=== PATIENT | male | born 1980 | race African-American/Black ===

== ENCOUNTER 2021-10-11 13:10 | Emergency (ER) | payer MEDICAID, SELFPAY ==
[2021-10-11] VITALS (11 sets, daily range): BP systolic 110–253; BP diastolic 85–174; PULSE 105–162; RESP 19–21; TEMP 37.6–39.2; O2SAT 88–100; BMI 25.1
--- NOTE | ~2021-10-11 | CT_ITS ---
EXAMINATION: CT CHEST WITH CONTRAST CT ABDOMEN AND PELVIS WITH CONTRAST CLINICAL INFORMATION: Unresponsive. Unknown trauma. COMPARISON: None. TECHNIQUE: Multidetector volumetric imaging was performed through the chest, abdomen and pelvis following the administration of 85 mL of Omnipaque 350 intravenous contrast. Sagittal and coronal reformatted images were obtained on the technologist's workstation. Axial MIP volume rendering provided. This CT examination was performed using dose optimization techniques as appropriate, variously including the following: *Automated exposure control *Adjustment of mA and/or kV according to patient size (this includes techniques or standardized protocols for targeted exams where dose is matched to indication/reason for exam; i.e. extremities or head) *Use of iterative reconstruction technique DLP: 411 mGy-cm. FINDINGS: CHEST: Lungs: The endotracheal tube terminates 4 cm above the caroline. Significant filling defects within the distal trachea extending into the left mainstem bronchus. Bilateral lower lobe bronchial filling defects also noted, suggestive of secretions. There is no dense consolidation. Minimal basilar atelectasis bilaterally. Mild upper lobe predominant paraseptal emphysema at both lung apices. No pleural effusion. No pneumothorax. Mediastinum: The heart is of normal size. There is no pericardial effusion. Central vascular structures are unremarkable. No hilar or mediastinal lymphadenopathy. Chest Wall/Axilla: No lymphadenopathy. No chest wall mass. ABDOMEN/PELVIS: Liver, Gallbladder, Biliary Tree: The liver is normal in size, shape, and attenuation. No focal hepatic lesion or biliary ductal dilatation is present. The gallbladder is unremarkable with no evidence of radiopaque gallstones, gallbladder wall thickening, or pericholecystic inflammatory changes. Pancreas: Unremarkable. Spleen: Unremarkable. Adrenal Glands: Unremarkable. Kidneys and Ureters: The kidneys are normal in size, shape, and attenuation. No hydronephrosis, hydroureter or calculi seen. Mild symmetric perinephric stranding. Symmetric contrast excretion. Bladder: Decompressed with Hidalgo catheter in place. Gastrointestinal Tract: Enteric tube terminates in the distal stomach. Normal caliber small bowel. No obstruction. No colonic wall thickening or inflammatory change. No free air or free fluid. The appendix is unremarkable. Abdominal Wall: No hernia is demonstrated. Lymphovascular Structures: Lymph nodes: Normal. Vascular: Unremarkable. Pelvic Viscera: The prostate and seminal vesicles are unremarkable. OSSEOUS STRUCTURES: No suspicious sclerotic or lytic bone lesions are identified. Mild degenerative changes of the spine. Vertebral body height and alignment maintained. No acute fracture. Intact sternum. The pelvis is intact. The ribs are intact. CT/CT abdomen pelvis w con IMPRESSION: No acute traumatic finding of the chest, abdomen, or pelvis. Endotracheal tube terminates 4 cm above the caroline. Secretions seen within the trachea and extending into both the left and right bronchi.
--- NOTE | ~2021-10-11 | CT_ITS ---
CT HEAD WITHOUT IV CONTRAST CT MAXILLOFACIAL WITH CONTRAST INDICATION: Unresponsive bilateral proptosis. Rule out fracture and/or bleed. COMPARISON: None available. TECHNIQUE: Multidetector CT acquisitions of the head was obtained without IV contrast. Additionally, a postcontrast CT of the maxillofacial region is obtained following the administration of 85 mL of Omnipaque 350 intravenous contrast without complication. This CT examination was performed using dose optimization techniques as appropriate, variously including the following: *Automated exposure control *Adjustment of mA and/or kV according to patient size (this includes techniques or standardized protocols for targeted exams where dose is matched to indication/reason for exam; i.e. extremities or head) *Use of iterative reconstruction technique FINDINGS: There is extensive edema throughout the cerebral white matter bilaterally resulting in global cerebral sulcal effacement and descending transtentorial herniation with effacement of the paramesencephalic and suprasellar cisterns. There is moderate to severe hydrocephalus. Intermediate to high density material within the dependent aspect of the ventricles may reflect intraventricular blood products or pus. No additional evidence of hemorrhage. No territorial infarcts. 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 There is post septal cellulitis partially effacing the left retrobulbar fat with associated left proptosis. 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 There is post septal cellulitis partially effacing the left retrobulbar fat with associated left proptosis. There is significantly decreased caliber of the intracranial left internal carotid artery, concerning for a component of vasculitis reactive narrowing in the setting of infection. There may also be irregularity of additional vessels within the anterior and posterior intracranial arterial circulations to assessment is limited on this nonvascular study CT/CT facial bones w con IMPRESSION: - There is extensive edema throughout the cerebral white matter bilaterally resulting in global cerebral sulcal effacement and descending transtentorial herniation with effacement of the paramesencephalic and suprasellar cisterns. - There is moderate to severe hydrocephalus. Intermediate to high density material within the dependent aspect of the ventricles may reflect intraventricular blood products or pus. 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 There is left-sided post septal cellulitis partially effacing the left retrobulbar fat with associated left proptosis. - The cavernous sinuses are not visualized on the venous phase postcontrast study raising the concern for bilateral cavernous sinus thrombosis. MRI with and without IV contrast and MRV of the head with and without contrast recommended for further assessment. - There is significantly decreased caliber of the intracranial left internal carotid artery, concerning for a component of vasculitis/reactive narrowing in the setting of infection. There may also be irregularity of additional vessels within the anterior and posterior intracranial arterial circulations to assessment is limited on this nonvascular study - There is extensive pansinus disease concerning for underlying acute sinusitis, possibly a source for the above findings. Critical findings discussed with Dr. Bonilla at 3:52 PM on 10/11/2021.
--- NOTE | 2021-10-11 13:19 | PC.NURSE ---
intubated by dr boothe on arrival to ed - etomidate 20m ivp at 1318 rocuronium 40mg ivp @1319
--- NOTE | 2021-10-11 13:30 | PC.NURSE ---
et tube 7.0, #24 at r lip placed by lexx last.
--- NOTE | 2021-10-11 13:34 | ECG_ITS ---
Test Reason : CP Blood Pressure : / mmHG Vent. Rate : 142 BPM Atrial Rate : 142 BPM P-R Int : 146 ms QRS Dur : 076 ms QT Int : 266 ms P-R-T Axes : 067 044 036 degrees QTc Int : 409 ms Sinus tachycardia Biatrial enlargement Left ventricular hypertrophy ( Sokolow-Fiore , [place] product , Romhilt-Jasmine ) Marked ST abnormality, possible lateral subendocardial injury Abnormal ECG No previous ECGs available Referred By: Fredrick Bonilla Electronically Signed By:STEFF MOTT MD
--- NOTE | 2021-10-11 13:40 | PC.NURSE ---
labetolol 10mg ivp x [address] hallman.
--- NOTE | 2021-10-11 13:46 | ED.GENADULT ---
HPI - General Adult General Chief complaint: General Medical Stated complaint: UNRESPONSIVE,L EYE SWELLING Time Seen by Provider: 10/11/21 13:33 Source: EMS Mode of arrival: EMS Limitations: altered mental status History of Present Illness HPI narrative: 41-year-old male brought to emergency department by ambulance for evaluation fever and unresponsiveness. Information came from the patient's , Carin who can be reached at . The patient has been sick for approximately 8 days. The patient has had fever, headache, dry cough, loss of sense of taste and smell. Two days prior the patient developed swelling of his left eye. The states that the patient was taking DayQuil, NyQuil and TheraFlu. He was also taking Tylenol. She states that they did a home COVID test on Friday ( 3 days prior to evaluation) and it was negative. The states that the patient went to bed around 04:00 and she did not check on until noon. When she checked on him he was unresponsive. She states that his tongue was hanging out and there was vomit on his face and on the bed. She was unable to wake him up so she called 911. When the paramedics arrived on the scene the patient was unresponsive and appeared to have respiratory distress. They were able to get in an intraosseous line and they were assisting his respirations with a bag-valve mask. On initial presentation the patient had proptosis bilaterally with a bulging left eye with erythema of the sclera and bulging of the sclera. Pupils were 3 mm bilaterally and unresponsive to light. The patient had no spontaneous movements and did not withdraw to pain. Related Data Allergies Allergy/AdvReac Type Severity Reaction Status Date / Time No Known Allergies Allergy Verified 10/11/21 13:33 Review of Systems Review of Systems: Yes all other systems are reviewed and are negative [facility] Past Medical History [facility] Narrative: Past medical, surgical and social history is unobtainable since the patient is altered Social History Social History Advance Directives: No Advance Directives Information Provided: Yes Physical Exam ED Vital Signs: Vital Signs - 24 hr 10/11/21 13:23 10/11/21 13:34 10/11/21 13:41 Temperature 99.7 F Pulse Rate 162 H 122 H 112 H Respiratory Rate 20 20 20 Blood Pressure 253/174 H 229/146 H 183/118 H Pulse Oximetry 88 L 100 100 10/11/21 13:52 10/11/21 14:53 10/11/21 16:29 Temperature 102.6 F H 102.2 F H 102 F H Pulse Rate 105 H 106 H 105 H Respiratory Rate 20 20 20 Blood Pressure 154/90 H 145/90 H 149/86 H Pulse Oximetry 100 99 100 BMI result Body Mass Index 25.1 Const Other: Unresponsive male patient skin is very warm to the touch, the patient is breathing but is respirations are being assisted by [id number] by the paramedics. The patient has proptosis of both eyes with the left sclera and conjunctiva are erythematous and swollen, pupils are 4 mm and minimally responsive. HENMT Other: Patient's head is normal cephalic and atraumatic Eyes Other: Both eyes are bulging as described above Neck Neck: Yes no lymphadenopathy and Yes trachea midline Chest Chest palpation & inspection: normal inspection of the chest Resp Other: Diminished breath sounds bilaterally, diffuse rhonchi, no wheezing Cardio Other: Tachycardia, normal S1-S2, no murmurs rubs or gallops GI Other: Abdomen is distended, has normoactive bowel sounds Skin Other: No rashes or lesions Neuro Other: Patient does not respond to painful stimuli Course Course Course Narrative: 41-year-old male who presents emergency department with a viral-like illness for 8 days, bulging of both eyes left greater than right x2 days. His last saw him at 04:00 and when she checked in on him at noon she states that his tongue was hanging out, he had vomited on his face and in the bed, he was unresponsive. The patient's viral symptoms included fever, dry cough, headache and fatigue. You received the Pfizer vaccine x2 shots and he had a negative at home COVID test 3 days prior. On presentation, the patient was unresponsive to painful stimuli felt very warm to the touch. Patient's temperature was greater than 102 degrees F. patient's blood pressures were initially extremely high 253/175. Or the patient given RSI with etomidate and rocuronium, there was significant posterior pharyngeal swelling the patient and I was unable to into the patient for several times. In between attempts the patient's O2 saturation remained 99% with bag-valve mask ventilation. The division engineer, Dr. Knapp was able to intubate the patient with a 7.0 endotracheal tube. The patient was given labetalol 10 mg IV. He was started on a propofol drip. Laboratory evaluation blood cultures were ordered patient. The patient will be tested for influenza and COVID-19. CT scan of the head, face, neck, chest, abdomen pelvis was also ordered. I ordered to get Zosyn 4.5 g IV and vancomycin. 1646: Laboratory evaluation: WBC elevated 25,700. Platelet count elevated 434,000. PT/INR elevated 16.3 and 1.4. CPK elevated 736. High sensitivity troponin elevated 84.3. TSH was normal. COVID-19 was negative. Influenza screen pending. Radiology evaluation: Please see the radiology reports. The patient has extensive edema throughout the cerebral white matter bilaterally with effacement and descending herniation there is severe hydrocephalus. There appears to be dense material in the ventricles which could be blood or purulent material. The superior ophthalmic vein is thrombosed . The cavernous sinus is not visualized and is most likely thrombosed. There is extensive 10 sinusitis. Based on these findings, patient may have had a viral else and then developed sinusitis which then spread to the periorbital area, the cavernous sinus and into the brain. Patient has extensive brain edema with herniation. I did discuss this with our division engineer and he recommended mannitol 25 mg IV and 3% normal saline 25 cc/hour x3 hours. I did contact [facility] and they are closed to transfer. I did contact [facility] and they did accept this patient as an ED to ED transfer to the [facility]. The patient will be transferred by ALS ambulance. Procedures Intubation Time out performed: No sedative: Etomidate Mg Given: 20 paralytic: Rocuronium Mg Given: 40 Laryngoscope: other ([place] scope) ET Tube Size: 7 ET Tube Uncuffed: Yes Tube Secured Depth (cm): 27 Tube Secured Location: lips Tube Placement Confirmation: visualized tube passing through cords Additional Comments: Initially and made 3 attempts at trying to intubate the patient was unsuccessful. Between attempts the patient was supported with a bag-valve mask and his O2 saturation remained at 99%. The division engineer, Dr. Knapp was able to intubate the patient with 7.0 ET tube. Medical Decision Making Lab Data Result diagrams: 10/11/21 13:18 10/11/21 13:18 Labs: Lab Results 10/11/21 10/11/21 10/11/21 Range/Units 13:18 13:18 13:18 WBC 25.7 H (4.8-10.8) X10*3/uL RBC 5.25 (4.60-5.80) X10*6/uL Hgb 14.3 (14.0-18.0) g/dl Hct 44.4 (42.0-52.0) % MCV 84.6 (80.0-98.0) fL MCH 27.2 (27.0-33.0) pg MCHC 32.2 (31.0-36.0) g/dl RDW 12.7 (11.0-16.0) % Plt Count 434 H (160-400) X10*3/uL MPV 10.1 (9.4-12.4) fL Immature Gran % (Auto) 1.4 H (0.0-0.4) % Neut % (Auto) 76.8 H (45-73) % Lymph % (Auto) 3.8 L (20-40) % Johnson % (Auto) 17.9 H (2-11) % Eos % (Auto) 0.0 (0-4) % Baso % (Auto) 0.1 (0-2) % Lymph # (Auto) 1.0 L (1.2-4.9) X10*3/uL Johnson # (Auto) 4.6 H (0.1-1.2) X10*3/uL Eos # (Auto) 0.0 (0.0-0.4) X10*3/uL Baso # (Auto) 0.0 (0.0-0.2) X10*3/uL Abs Immat Gran (auto) 0.35 H (0.00-0.03) X10*3/uL Absolute Neuts (auto) 19.8 H (2.0-8.3) x10*3/uL Absolute Nucleated RBC 0.000 (0.0-0.012) X10*3/uL Nucleated RBC % (auto) 0.0 (0.0-0.2) /100WBC Smear Tech's Comments VERIFIED PT 16.3 H (9.9-13.0) SEC INR 1.4 H (0.9-1.1) APTT 38.7 H (24.1-38.0) SEC D-Dimer High Sensitivty 933 NG/ML Sodium 137 (135-145) mmol/L Potassium 3.8 (3.3-5.1) mmol/L Chloride 95 L (96-108) mmol/L Carbon Dioxide 25 (22-29) mmol/L Anion Gap 21 H (12-20) BUN 14 (9-16) mg/dL Creatinine 1.31 (0.5-1.4) mg/dL Estim Creat Clear Calc 79.8 Estimated GFR > 60 Random Glucose 154 H (60-115) mg/dL Lactic Acid (0.5-2.0) mmol/L Calcium 9.7 (8.4-10.2) mg/dL Total Bilirubin 0.8 (0.0-1.0) mg/dL AST 48 H (5-37) U/L ALT 48 H (0-40) U/L Alkaline Phosphatase 97 (39-117) U/L Total Creatine Kinase 736 H (38-174) U/L Troponin I High Sens (<3.5-35.0) ng/L Total Protein 8.6 H (6.5-8.0) g/dL Albumin 4.2 (3.5-5.0) g/dL Lipase 10 (8-78) U/L TSH 0.45 (0.32-4.0) uIU/mL Urine Color Urine Appearance Urine pH (5.0-8.0) Ur Specific [place] (1.005-1.025) Urine Protein (NEG-TRACE) MG/DL Urine Glucose (UA) (NEG) MG/DL Urine Ketones (NEG) MG/DL Urine Blood (NEG) Urine Nitrite (NEG) Ur Leukocyte Esterase (NEG) Urine RBC (0) /HPF Urine WBC (0-4) /HPF Ur Squamous Epith Cells /LPF Urine Bacteria /LPF Urine Opiates Screen (Not Detect) Urine Fentanyl Screen (Not Detect) Ur Barbiturates Screen (Not Detect) Ur Phencyclidine Scrn (Not Detect) Ur Amphetamines Screen (Not Detect) U Benzodiazepines Scrn (Not Detect) Urine Cocaine Screen (Not Detect) U Marijuana (THC) Screen (Not Detect) Ethyl Alcohol mg/dL COVID-19 (CHETNA) (Negative) COVID-19 Clin Com 10/11/21 10/11/21 10/11/21 Range/Units 13:18 13:18 13:18 WBC (4.8-10.8) X10*3/uL RBC (4.60-5.80) X10*6/uL Hgb (14.0-18.0) g/dl Hct (42.0-52.0) % MCV (80.0-98.0) fL MCH (27.0-33.0) pg MCHC (31.0-36.0) g/dl RDW (11.0-16.0) % Plt Count (160-400) X10*3/uL MPV (9.4-12.4) fL Immature Gran % (Auto) (0.0-0.4) % Neut % (Auto) (45-73) % Lymph % (Auto) (20-40) % Johnson % (Auto) (2-11) % Eos % (Auto) (0-4) % Baso % (Auto) (0-2) % Lymph # (Auto) (1.2-4.9) X10*3/uL [place] # (Auto) (0.1-1.2) X10*3/uL Eos # (Auto) (0.0-0.4) X10*3/uL Baso # (Auto) (0.0-0.2) X10*3/uL Abs Immat Gran (auto) (0.00-0.03) X10*3/uL Absolute Neuts (auto) (2.0-8.3) x10*3/uL Absolute Nucleated RBC (0.0-0.012) X10*3/uL Nucleated RBC % (auto) (0.0-0.2) /100WBC Smear Tech's Comments PT (9.9-13.0) SEC INR (0.9-1.1) APTT (24.1-38.0) SEC D-Dimer High Sensitivty NG/ML Sodium (135-145) mmol/L Potassium (3.3-5.1) mmol/L Chloride (96-108) mmol/L Carbon Dioxide (22-29) mmol/L Anion Gap (12-20) BUN (9-16) mg/dL Creatinine (0.5-1.4) mg/dL Estim Creat Clear Calc Estimated GFR Random Glucose (60-115) mg/dL Lactic Acid 1.0 (0.5-2.0) mmol/L Calcium (8.4-10.2) mg/dL Total Bilirubin (0.0-1.0) mg/dL AST (5-37) U/L ALT (0-40) U/L Alkaline Phosphatase (39-117) U/L Total Creatine Kinase (38-174) U/L Troponin I High Sens 84.3 H (<3.5-35.0) ng/L Total Protein (6.5-8.0) g/dL Albumin (3.5-5.0) g/dL Lipase (8-78) U/L TSH (0.32-4.0) uIU/mL Urine Color Urine Appearance Urine pH (5.0-8.0) Ur Specific [place] (1.005-1.025) Urine Protein (NEG-TRACE) MG/DL Urine Glucose (UA) (NEG) MG/DL Urine Ketones (NEG) MG/DL Urine Blood (NEG) Urine Nitrite (NEG) Ur Leukocyte Esterase (NEG) Urine RBC (0) /HPF Urine WBC (0-4) /HPF Ur Squamous Epith Cells /LPF Urine Bacteria /LPF Urine Opiates Screen (Not Detect) Urine Fentanyl Screen (Not Detect) Ur Barbiturates Screen (Not Detect) Ur Phencyclidine Scrn (Not Detect) Ur Amphetamines Screen (Not Detect) U Benzodiazepines Scrn (Not Detect) Urine Cocaine Screen (Not Detect) U Marijuana (THC) Screen (Not Detect) Ethyl Alcohol < 10 mg/dL COVID-19 (CHETNA) (Negative) COVID-19 Clin Com 10/11/21 10/11/21 10/11/21 Range/Units 13:18 14:57 15:40 WBC (4.8-10.8) X10*3/uL RBC (4.60-5.80) X10*6/uL Hgb (14.0-18.0) g/dl Hct (42.0-52.0) % MCV (80.0-98.0) fL MCH (27.0-33.0) pg MCHC (31.0-36.0) g/dl RDW (11.0-16.0) % Plt Count (160-400) X10*3/uL MPV (9.4-12.4) fL Immature Gran % (Auto) (0.0-0.4) % Neut % (Auto) (45-73) % Lymph % (Auto) (20-40) % Johnson % (Auto) (2-11) % Eos % (Auto) (0-4) % Baso % (Auto) (0-2) % Lymph # (Auto) (1.2-4.9) X10*3/uL Johnson # (Auto) (0.1-1.2) X10*3/uL Eos # (Auto) (0.0-0.4) X10*3/uL Baso # (Auto) (0.0-0.2) X10*3/uL Abs Immat Gran (auto) (0.00-0.03) X10*3/uL Absolute Neuts (auto) (2.0-8.3) x10*3/uL Absolute Nucleated RBC (0.0-0.012) X10*3/uL Nucleated RBC % (auto) (0.0-0.2) /100WBC Smear Tech's Comments PT (9.9-13.0) SEC INR (0.9-1.1) APTT (24.1-38.0) SEC D-Dimer High Sensitivty NG/ML Sodium (135-145) mmol/L Potassium (3.3-5.1) mmol/L Chloride (96-108) mmol/L Carbon Dioxide (22-29) mmol/L Anion Gap (12-20) BUN (9-16) mg/dL Creatinine (0.5-1.4) mg/dL Estim Creat Clear Calc Estimated GFR Random Glucose (60-115) mg/dL Lactic Acid (0.5-2.0) mmol/L Calcium (8.4-10.2) mg/dL Total Bilirubin (0.0-1.0) mg/dL AST (5-37) U/L ALT (0-40) U/L Alkaline Phosphatase (39-117) U/L Total Creatine Kinase (38-174) U/L Troponin I High Sens (<3.5-35.0) ng/L Total Protein (6.5-8.0) g/dL Albumin (3.5-5.0) g/dL Lipase (8-78) U/L TSH Cancelled (0.32-4.0) uIU/mL Urine Color YELLOW Urine Appearance CLEAR Urine pH 5.5 (5.0-8.0) Ur Specific [place] 1.010 (1.005-1.025) Urine Protein 1+ H (NEG-TRACE) MG/DL Urine Glucose (UA) NEG (NEG) MG/DL Urine Ketones NEG (NEG) MG/DL Urine Blood 1+ H (NEG) Urine Nitrite NEG (NEG) Ur Leukocyte Esterase NEG (NEG) Urine RBC 0-2 (0) /HPF Urine WBC 0 (0-4) /HPF Ur Squamous Epith Cells NONE /LPF Urine Bacteria NONE /LPF Urine Opiates Screen (Not Detect) Urine Fentanyl Screen (Not Detect) Ur Barbiturates Screen (Not Detect) Ur Phencyclidine Scrn (Not Detect) Ur Amphetamines Screen (Not Detect) U Benzodiazepines Scrn (Not Detect) Urine Cocaine Screen (Not Detect) U Marijuana (THC) Screen (Not Detect) Ethyl Alcohol mg/dL COVID-19 (CHETNA) Negative (Negative) COVID-19 Clin Com See Note 10/11/21 Range/Units 15:40 WBC (4.8-10.8) X10*3/uL RBC (4.60-5.80) X10*6/uL Hgb (14.0-18.0) g/dl Hct (42.0-52.0) % MCV (80.0-98.0) fL MCH (27.0-33.0) pg MCHC (31.0-36.0) g/dl RDW (11.0-16.0) % Plt Count (160-400) X10*3/uL MPV (9.4-12.4) fL Immature Gran % (Auto) (0.0-0.4) % Neut % (Auto) (45-73) % Lymph % (Auto) (20-40) % Johnson % (Auto) (2-11) % Eos % (Auto) (0-4) % Baso % (Auto) (0-2) % Lymph # (Auto) (1.2-4.9) X10*3/uL Johnson # (Auto) (0.1-1.2) X10*3/uL Eos # (Auto) (0.0-0.4) X10*3/uL Baso # (Auto) (0.0-0.2) X10*3/uL Abs Immat Gran (auto) (0.00-0.03) X10*3/uL Absolute Neuts (auto) (2.0-8.3) x10*3/uL Absolute Nucleated RBC (0.0-0.012) X10*3/uL Nucleated RBC % (auto) (0.0-0.2) /100WBC Smear Tech's Comments PT (9.9-13.0) SEC INR (0.9-1.1) APTT (24.1-38.0) SEC D-Dimer High Sensitivty NG/ML Sodium (135-145) mmol/L Potassium (3.3-5.1) mmol/L Chloride (96-108) mmol/L Carbon Dioxide (22-29) mmol/L Anion Gap (12-20) BUN (9-16) mg/dL Creatinine (0.5-1.4) mg/dL Estim Creat Clear Calc Estimated GFR Random Glucose (60-115) mg/dL Lactic Acid (0.5-2.0) mmol/L Calcium (8.4-10.2) mg/dL Total Bilirubin (0.0-1.0) mg/dL AST (5-37) U/L ALT (0-40) U/L Alkaline Phosphatase (39-117) U/L Total Creatine Kinase (38-174) U/L Troponin I High Sens (<3.5-35.0) ng/L Total Protein (6.5-8.0) g/dL Albumin (3.5-5.0) g/dL Lipase (8-78) U/L TSH (0.32-4.0) uIU/mL Urine Color Urine Appearance Urine pH (5.0-8.0) Ur Specific [place] (1.005-1.025) Urine Protein (NEG-TRACE) MG/DL Urine Glucose (UA) (NEG) MG/DL Urine Ketones (NEG) MG/DL Urine Blood (NEG) Urine Nitrite (NEG) Ur Leukocyte Esterase (NEG) Urine RBC (0) /HPF Urine WBC (0-4) /HPF Ur Squamous Epith Cells /LPF Urine Bacteria /LPF Urine Opiates Screen Not Detected (Not Detect) Urine Fentanyl Screen Not Detected (Not Detect) Ur Barbiturates Screen Not Detected (Not Detect) Ur Phencyclidine Scrn Not Detected (Not Detect) Ur Amphetamines Screen Not Detected (Not Detect) U Benzodiazepines Scrn POSITIVE H (Not Detect) Urine Cocaine Screen Not Detected (Not Detect) U Marijuana (THC) Screen Not Detected (Not Detect) Ethyl Alcohol mg/dL COVID-19 (CHETNA) (Negative) COVID-19 Clin Com Critical Care Time Critical Care Time Critical Care Time: Yes Total Critical Care Time: 80 Attestation: Critical Care: The patient was critically ill with a high probability of imminent or life threatening deterioration. I spent greater than 30 minutes of discontinuous time evaluating the patient,delivering critical care at the bedside, discussing and evaluating pertinent data with consultants. Critical care time does not include time spent performing separately billable procedures or teaching. Total time spent performing critical care was 80 minutes. Discharge Plan Discharge Clinical Impression: Periorbital cellulitis, Acute pansinusitis, Cerebral edema, Cavernous sinus thrombosis Patient Disposition: [facility] Transfer Details: ED to ED transfer to [facility]
[2021-10-11 13:48] LABS: Basophils Percent Auto 0.1 % (0-2); Hematocrit 44.4 % (42.0-52.0); Hemoglobin 14.3 g/dl (14.0-18.0); Imm Gran Abs Auto 0.35 X10*3/uL (0.00-0.03); Imm Gran Pct Auto 1.4 % (0.0-0.4); Lymphocytes Percent Auto 3.8 % (20-40); MANUAL DIFF FLAG SCAN; Mean Corpuscular HGB Conc 32.2 g/dl (31.0-36.0); Mean Corpuscular Hemoglobin 27.2 pg (27.0-33.0); Mean Corpuscular Volume 84.6 fL (80.0-98.0); Mean Platelet Volume 10.1 fL (9.4-12.4); Monocytes Absolute Auto 4.6 X10*3/uL (0.1-1.2); Monocytes Percent Auto 17.9 % (2-11); Neutrophils Absolute Auto 19.8 x10*3/uL (2.0-8.3); Neutrophils Percent Auto 76.8 % (45-73); Platelet Count 434 X10*3/uL (160-400); Red Blood Count 5.25 X10*6/uL (4.60-5.80); Red Cell Distribution Width 12.7 % (11.0-16.0); SCAN SMEAR FLAG 1; White Blood Count 25.7 X10*3/uL (4.8-10.8)
[2021-10-11 13:50] LABS: INTERNATIONAL NORM RATIO 1.4 (0.9-1.1); Prothrombin Time 16.3 SEC (9.9-13.0)
[2021-10-11 13:52] LABS: D Dimer High Sensitivity 933 NG/ML
[2021-10-11 13:53] LABS: Partial Thromboplastin Time 38.7 SEC (24.1-38.0)
[2021-10-11] MEDS: 0.9 % Sodium Chloride 1,000 ML 999 ML IV (13:55)
[2021-10-11 13:56] LABS: Ethanol < 10 mg/dL
[2021-10-11] MEDS: Acetaminophen Supp 650 MG SUPP.RECT PR ×2 (14:00→18:29)
[2021-10-11 14:02] LABS: Alanine Aminotransferase 48 U/L (0-40); Albumin Level 4.2 g/dL (3.5-5.0); Alkaline Phosphatase 97 U/L (39-117); Anion Gap 21 (12-20); Aspartate Amino Transferase 48 U/L (5-37); Bilirubin Total 0.8 mg/dL (0.0-1.0); Blood Urea Nitrogen 14 mg/dL (9-16); Calcium 9.7 mg/dL (8.4-10.2); Carbon Dioxide 25 mmol/L (22-29); Chloride 95 mmol/L (96-108); Creatinine Clr Calc Pharmacy 79.8; Estimated Glomerular Filt Rate > 60; Glucose Random 154 mg/dL (60-115); Lipase 10 U/L (8-78); Potassium 3.8 mmol/L (3.3-5.1); Sodium 137 mmol/L (135-145); Total Protein 8.6 g/dL (6.5-8.0)
[2021-10-11] MEDS: propofoL 1,000 MG/100 ML VIAL 14.72 MG IVCONT (14:02)
[2021-10-11 14:05] LABS: SLIDE REVIEW VERIFIED
[2021-10-11 14:06] LABS: Troponin-I High Sensitivity 84.3 ng/L (<3.5-35.0)
[2021-10-11] MEDS: Labetalol HCL 100 MG/20 ML VIAL 10 MG IVPUSH (14:10)
[2021-10-11 14:21] LABS: TSH reflex Free T4 0.45 uIU/mL (0.32-4.0)
[2021-10-11] MEDS: iohexoL 350 MG/ML 100 ML INFUS..BTL IV (14:37)
[2021-10-11] MEDS: Piperacillin Sodium/Tazobactam 4.5 GM in 0.9 % Sodium Chloride 100 ML IV (14:39)
[2021-10-11] MEDS: Midazolam HCl/PF 2 MG/2 ML VIAL 4 MG IVPUSH (14:50)
[2021-10-11] MEDS: vancomycin HCL 1,000 MG in 0.9 % Sodium Chloride 250 ML 270 MG IV (15:19)
--- NOTE | 2021-10-11 15:39 | PC.NURSE ---
report given to ginger (icu, rn)
[2021-10-11 15:40] LABS: COVID-19 Test Negative (Negative)
[2021-10-11 15:42] LABS: IDNOW Serial# 55D5AD1C
[2021-10-11 15:47] LABS: Appearance Urine CLEAR; Color Urine YELLOW; Glucose Urine UA NEG (NEG); Leukocyte Esterase Urine NEG (NEG); Nitrite Urine NEG (NEG); PH 5.5 (5.0-8.0); UACC Culture Trigger NO; Urine Blood 1+ (NEG); Urine Ketones NEG (NEG); Urine Protein 1+ MG/DL (NEG-TRACE)
[2021-10-11 15:57] LABS: RBC Urine 0-2 /HPF (0); WBC Urine 0 /HPF (0-4)
[2021-10-11 16:08] LABS: Amphetamine Screen Urine Not Detected (Not Detect); Barbiturates, Urine Not Detected (Not Detect); Benzodiazepines Screen Urine POSITIVE (Not Detect); Cannabinoid Screen Urine Not Detected (Not Detect); Cocaine Screen Urine Not Detected (Not Detect); Fentanyl, urine Not Detected (Not Detect); Opiate Screen Urine Not Detected (Not Detect); Phencyclidine Screen Urine Not Detected (Not Detect)
[2021-10-11] MEDS: Etomidate 20 MG/10 ML VIAL IVPUSH (16:28)
[2021-10-11 16:52] LABS: Influenza A Negative (Negative); Influenza B2 Negative (Negative)
--- NOTE | 2021-10-11 17:00 | W.PM.CCCN ---
History of Present Illness Data of Consult Service Date: 10/11/21 Requesting physician: Fredrick Bonilla Primary Care Provider: [facility] HPI Reason for consult: Patient presented unresponsive and apneic being bagged with hypoxemic respi Found by family unresponsive in bed with near extrusion and open opacifications of the right eye and significant but less prominent proptosis of the left eye and the patient needed to be bagged with was in hypoxemic respiratory failure acutely hypertensive and in sinus tachycardia with rates in the 160s I was able to obtain airway immediately using glide scope and he began to have his tachycardia slowly relax but hypertension still 250/150 and we had concerns because of the proptosis which was asymmetric about elevated intracranial pressure possible cavernous sinus thrombosis etc. but I gave him 10 mg of IV labetalol blood pressure came down to about 170/100 which was more comfortable and he stabilized with a heart rate in the 120s in sinus an EKG without acute change but showing left ventricular enlargement by voltage with biatrial enlargement and he went to CT scan and we waited a while for that result at this point but he was febrile to 103 and then apparently according to the was febrile all week not feeling well constitutional complaints and then today in the space of several hours when she left him alone came back to him in bed in an unresponsive state nothing else was witnessed in between and he had no signs externally of any significant trauma Bedside echo shows normal LV and RV function with no primary valve or pericardial disease and there was concentric left ventricular hypertrophy probably consistent with chronic hypertensive disease Review of Systems Review of Systems: Yes Unobtainable due to mental status PMFSH Social History Social History Advance Directives: No Advance Directives Information Provided: Yes Meds Allergies Allergy/AdvReac Type Severity Reaction Status Date / Time No Known Allergies Allergy Verified 10/11/21 13:33 Active Medications: Current Medications Propofol (Diprivan) 1,000 mg in 100 mls @ 0 mls/hr IVCONT .Q0M [facility]; Protocol Last Admin: 10/11/21 14:02 Dose: 30 mcg/kg/min, 14.72 mls/hr Documented by: Sodium Chloride 75 ml/ IV (Miscellaneous Supplies) 75 mls @ 25 mls/hr IV ONCE ONE Stop: 10/11/21 19:29 Last Admin: 10/11/21 16:58 Dose: 25 mls/hr Documented by: Physical Exam Vital Signs: Vital Signs: Last Vital Signs Temp 102 F H 10/11/21 16:29 Pulse 105 H 10/11/21 16:29 Resp 20 10/11/21 16:29 BP 149/86 H 10/11/21 16:29 Pulse Ox 100 10/11/21 16:29 BMI result Body Mass Index 25.1 Acutely hypertensive somewhat improved normal sinus rhythm without acute ST-T changes and patient did does not move even in response to pain completely unresponsive No audible breath sounds bilaterally Abdomen was distended but the ER initially with bagging probably put air into his abdomen Peripherally warm well perfused without acrocyanosis [place] [id number] no particular left shift or prematures sed rate is pending Currently preserve renal function Hidalgo catheter to be placed also to obtain a toxicology screen COVID screening is being performed patient completely unresponsive extremely low glass cow coma Scale and bedside echo indicating normal ventricular function Results Labs CBC & Chem 7: 10/11/21 13:18 10/11/21 13:18 Labs: Short CBC 10/11/21 Range/Units 13:18 WBC 25.7 H (4.8-10.8) X10*3/uL Hgb 14.3 (14.0-18.0) g/dl Hct 44.4 (42.0-52.0) % Plt Count 434 H (160-400) X10*3/uL BMP 10/11/21 13:18 Sodium 137 Potassium 3.8 Chloride 95 L Carbon Dioxide 25 BUN 14 Creatinine 1.31 Calcium 9.7 Cardiac Enzymes 10/11/21 Range/Units 13:18 Total Creatine Kinase 736 H (38-174) U/L Liver Function 10/11/21 Range/Units 13:18 Total Bilirubin 0.8 (0.0-1.0) mg/dL AST 48 H (5-37) U/L ALT 48 H (0-40) U/L Alkaline Phosphatase 97 (39-117) U/L Albumin 4.2 (3.5-5.0) g/dL Urine 10/11/21 Range/Units 15:40 Urine Color YELLOW Urine Appearance CLEAR Urine pH 5.5 (5.0-8.0) Ur Specific [place] 1.010 (1.005-1.025) Urine Protein 1+ H (NEG-TRACE) MG/DL Urine Glucose (UA) NEG (NEG) MG/DL Assessment and Plan (1) Acute pansinusitis: Status: Acute (2) Cerebral edema: Status: Acute (3) Cavernous sinus thrombosis: Status: Acute (4) Traumatic compression of brain with herniation: Status: Acute (5) Elevated intracranial pressure: Status: Acute (6) Vasogenic brain edema: Status: Acute (7) Fever: Status: Acute Plan It appears that cerebral venous thrombosis is likely with possible infarct severe cerebral edema with elevated intracranial pressure and and threaten herniation in a 41-year-old and with the fever this could be infectious in origin so cultures were done but the LP cannot be performed is contraindicated or possible underlying vasculitic or thrombi Modic penchant but at this point emergent 3% saline for 3 hours at 25 cc/hour and 12.5 g of IV mannitol are being pushed and the need to transfer to a Neuro Intensive [facility] Center is being explored
--- NOTE | 2021-10-11 17:10 | W.PM.CCHP ---
Procedures Date of Service Date of Service: 10/11/21 Intubation Intubation Comments: Emergent intubation using glide scope 3. Blade with good visualization of the vocal cords without complication in a matter of seconds and no loss of oxygen saturation during that time Good bilateral breath sounds excellent capnography and chest x-ray confirming position above the caroline at 4 cm add no barotrauma Consent for Procedure: Emergent-no informed consent obtained Time out performed: Yes Sedative: none Laryngoscope: fiber optic video scope ET tube size: 7 ET tube uncuffed: No Tube secured depth (cm): 24 Tube secured location: lips Tube placement confirmation: visualized tube passing through cords, equal breath sounds bilaterally, no breath sounds over epigastrium and confirmation by capnometry Patient tolerated procedure: well and no complications Intubation complications: none
[2021-10-11] MEDS: MannitoL 12.5 GM/50 ML VIAL IV (17:16)
[2021-10-11] MEDS: fentaNYL citrate/PF 100 MCG/2 ML VIAL IVPUSH (18:44)
[2021-10-11] MEDS: fentaNYL citrate/NS 1,000 MCG/100 ML PLAST..BAG 2.5 MCG IVCONT (18:53)
[2021-10-11] MEDS: propofoL 1,000 MG/100 ML VIAL 40 MG IVCONT (18:58)
== END 2021-10-11 19:21 | disposition short-term general hospital (02) ==
PROVIDERS: Emergency Provider Emergency Medicine Emergency Medical Services
DX: G93.5 Compression of brain (principal); J01.40 Acute pansinusitis, unspecified; G93.6 Cerebral edema; L03.213 Periorbital cellulitis; G08 Intracranial and intraspinal phlebitis and thrombophlebitis; G93.2 Benign intracranial hypertension; R40.4 Transient alteration of awareness; R50.9 Fever, unspecified; B34.9 Viral infection, unspecified; Z20.822 Contact with and (suspected) exposure to COVID-19
CPT/HCPCS: 31500; 36415; 70450; 70487; 71260; 74177; 80053; 80307; 81001; 82077; 82550; 83605; 83690; 84443; 84484; 85025; 85379; 85610; 85730; 87040; 87077; 87186; 87205; 87502; 87635; 93005; 94002; 96361; 96365; 96367; 96375; 99285; 99291; 99292; J2150; J2250; J2543; J3010; J3370; J7131; Q9967